=== PATIENT | female | born 1950 | race Caucasian/White ===

== ENCOUNTER 2016-12-29 12:08 | Inpatient (IN) | payer OTHER ==
[~2016-12-29] VITALS: Ht 172.7 cm; Wt 51.8 kg
[~2016-12-29 12:08] MED LIST: ALTERIL SLEEP AID PO; CEFDINIR300 MG PO; CEFUROXIME500 MG PO; DUONEB 2.5-0.5M1 AMP NEB; IBUPROFEN400 MG PO; MUCINEX OTC; OPDIVO40 MG/4 ML IV; PREDNISONE 10MG10 MG PO; PREDNISONE TAPER; PREMARIN0.45 MG PO; PROTONIX 40MG T40 MG PO; SYMBICORT 1601 PUFFS INH
[2016-12-29 12:56] LABS: BASOPHIL 0.2 % (0-2); HCT 43.4 % (37.0-47.0); HGB 13.4 g/dl (12.5-16.0); LYMPHOCYTE 5.2 % (15-48); MCH 27.3 pg (25.0-31.0); MCHC 30.9 g/dL (32.0-36.0); MCV 88.4 fL (78.0-100.0); MPV 9.7 fL (6.0-9.5); PLT 259 K/uL (150-400); RBC 4.91 M/uL (4.20-5.40); RDW 17.5 % (11.5-14.0); WBC 9.9 K/uL (4.0-10.5)
[2016-12-29 12:58] LABS: NEUTROPHIL 90.6 % (41-80)
[2016-12-29 13:22] LABS: ALBUMIN 3.9 g/dL (3.4-4.8); BILIRUBIN - TOTAL 0.3 mg/dL (0.1-1.0); CREATININE 0.5 mg/dL (0.5-1.0); GLOBULIN (CALCULATION) 2.9 g/dL (2.2-4.2); TOTAL PROTEIN 6.8 g/dL (6.4-8.3)
[2016-12-29 13:24] LABS: LACTIC ACID 0.9 mmol/L (0.5-2.2)
[2016-12-30 04:31] LABS: BASOPHIL 0 % (0-2); EOSINOPHIL 0 % (0-7); HCT 38.8 % (37.0-47.0); HGB 12.4 g/dl (12.5-16.0); LYMPHOCYTE 6.9 % (15-48); MCH 27.7 pg (25.0-31.0); MCV 86.6 fL (78.0-100.0); MONOCYTE 1.4 % (0-12); MPV 9.2 fL (6.0-9.5); NEUTROPHIL 91.7 % (41-80); PLT 262 K/uL (150-400); RBC 4.48 M/uL (4.20-5.40); RDW 17.2 % (11.5-14.0)
[2016-12-30 04:39] LABS: WBC 4.9 K/uL (4.0-10.5)
[2016-12-30 04:52] LABS: CREATININE 0.5 mg/dL (0.5-1.0); POTASSIUM 4.1 mmol/L (3.5-5.1)
[2017-01-01] MEDS ORDERED: OXY-IR 5MG5 MG PO (09:34)
[2017-01-01] MEDS ORDERED: SPIRIVA18 MCG INH (09:34)
[2017-01-01] MEDS ORDERED: VITAMIN D1000 UNI1 PO (09:34)
[2017-01-01] MEDS ORDERED: LEVAQUIN750 MG PO (09:35)
[2017-01-01] MEDS ORDERED: PREDNISONE5 MG PO (09:35)
[2017-01-01] MEDS ORDERED: PROAIR HFA8.5 GM INH (12:04)
[2017-01-01] MEDS ORDERED: SYNTHROID125 MCG PO (12:04)
[2017-01-01] MEDS ORDERED: KLONOPIN0.5 MG PO (13:40)
[2017-01-01] MEDS ORDERED: PROBIOTIC1 EAC1 PO (13:41)
[2017-02-27] MEDS ORDERED: PREDNISONE 20MG20 MG PO (11:00)
[2017-02-27] MEDS ORDERED: VIBRAMYCIN100 MG PO (11:00)
[2017-02-27] MEDS ORDERED: SYNTHROID100 MCG PO (11:00)
== END 2017-01-01 13:31 | disposition home health service (06) | DRG 871 ==
LOC: FER 12:08 → FMS 15:20
PROVIDERS: Internal Medicine; ADMIT Internal Medicine
DX: A41.9 Sepsis, unspecified organism (principal); J18.9 Pneumonia, unspecified organism; J96.21 Acute and chronic respiratory failure with hypoxia; C34.92 Malignant neoplasm of unspecified part of left bronchus or lung; C34.91 Malignant neoplasm of unspecified part of right bronchus or lung; J96.22 Acute and chronic respiratory failure with hypercapnia; J44.0 Chronic obstructive pulmonary disease with (acute) lower respiratory infection; J44.1 Chronic obstructive pulmonary disease with (acute) exacerbation; E03.9 Hypothyroidism, unspecified; K21.9 Gastro-esophageal reflux disease without esophagitis; Z80.3 Family history of malignant neoplasm of breast
CPT/HCPCS: 36415; 36600; 71010; 80048; 80053; 82308; 82803; 83605; 84145; 84484; 85025; 87040; 87070; 87077; 87186; 87205; 93005; 94010; 94640; 94667; 94668; 97163; 97166; 97530; 97530-GP; J1956; J2543; J2930